=== PATIENT | female | born 2005 | race African-American/Black ===

== ENCOUNTER 2025-06-04 12:28 | Emergency (ER) | payer OTHER ==
[~2025-06-04] VITALS: Ht 165.1 cm; Wt 66.0 kg
[2025-06-04] MEDS: ONDANSETRON 4MG 2ML VIAL IV ONE (13:31)
[2025-06-04] MEDS: KETOROLAC 30 MG/ML 1 ML VIAL IV ONE (13:31)
[2025-06-04] MEDS: NS (Normal Saline) 0.9% 1,000 ML IV ONE (13:31)
[2025-06-04 13:45] LABS: BASO # 0.0 10^3/uL (0.0-0.2); BASO % 0.2 % (0.0-1.0); EOS # 0.0 10^3/uL (0.0-0.5); EOS % 0.2 % (0.0-3.0); LYMPH # 1.1 10^3/uL (1.5-5.0); LYMPH % 13.9 % (24.0-44.0); MONO # 0.3 10^3/uL (0.0-0.8); MONO % 4.1 % (2.0-8.0); NEUTROPHILS # 6.7 10^3/uL (1.5-8.5); NEUTROPHILS % 81.4 % (36.0-66.0); PLATELET COUNT, AUTOMATED 268 10^3/uL (150-450)
[2025-06-04 14:08] LABS: ALT/SGPT 20 U/L (7.0-40); AST/SGOT 19 U/L (<34); CALCIUM LEVEL 9.0 MG/DL (8.5-10.1); CARBON DIOXIDE LEVEL 23 MMOL/L (20-31); CHLORIDE LEVEL 106 MMOL/L (98-107); CREATININE FOR GFR 0.66 MG/DL (0.55-1.30); GLOMERULAR FILTRATION RATE > 90.0 (>60); POTASSIUM SERUM 4.1 MMOL/L (3.5-5.1); SODIUM LEVEL 136 MMOL/L (136-145)
[2025-06-04 14:09] LABS: HCG, SERUM QUALITATIVE NEGATIVE (NEGATIVE)
[2025-06-04] MEDS ORDERED: ISOVUE-370 76% 100 ML VIAL As Ordered ONE (14:43)
[2025-06-04 18:45] VITALS: BP 119/55; TEMP 97.4; O2SAT 100
[2025-06-04 18:53] LABS: URINE PREG TEST NEGATIVE (NEGATIVE)
[2025-06-04 19:06] LABS: APPEARANCE, URINE HAZY (CLEAR); BACTERIA, URINE AUTO NEGATIVE (NEGATIVE); BILIRUBIN, URINE AUTO NEGATIVE (NEGATIVE); BLOOD, URINE BLOOD 3+ (NEGATIVE); GLUCOSE, URINE (UA) AUTO NEGATIVE (NEGATIVE); KETONE, URINE AUTO TRACE mg/dL (NEGATIVE); LEUKOCYTE ESTERASE, URINE AUTO 2+ (NEGATIVE); NITRITE, URINE AUTO NEGATIVE (NEGATIVE); PROTEIN, URINE AUTO NEGATIVE (NEGATIVE); RBC, URINE AUTO TNTC /HPF (0-3); SQUAMOUS EPITHELIAL CELL UR AU 2 /HPF (0-6); UROBILINOGEN, URINE AUTO 0.2 mg/dL (0.0-2.0); WBC, URINE AUTO 49 /HPF (0-3)
[2025-06-04 19:08] LABS: SPECIFIC GRAVITY URINE AUTO >1.060 (1.002-1.035)
== END 2025-06-04 18:50 | disposition home or self-care (01) ==
LOC: M ED 12:28
DX: R11.10 Vomiting, unspecified (principal); N20.0 Calculus of kidney
CPT/HCPCS: 74177; 76705; 80048; 80076; 81001; 83690; 84703; 85025; 96361; 96374; 99284; J1885; J2405; Q9967